=== PATIENT | female | born 1960 ===

== ENCOUNTER 2017-12-31 18:32 | Inpatient (IN) ==
[2017-12-31] MEDS ORDERED: VANCOMYCIN INJ 1,250 MG in SODIUM CHLORIDE 0.9% 250 ML IV STA (19:14)
[2017-12-31] MEDS ORDERED: SODIUM CHLORIDE 0.9% 2,000 ML IV STA (19:14)
[2017-12-31] MEDS ORDERED: CEFEPIME 2,000 MG in SODIUM CHLORIDE 0.9% 100 ML IV STA ×2 (19:15→20:39)
[2017-12-31] MEDS ORDERED: SODIUM CHLORIDE 0.9% 2,400 ML IV ONE (19:49)
[2017-12-31] MEDS ORDERED: SODIUM CHLORIDE 0.9% 100 ML IV ONE (19:56)
[2017-12-31] MEDS ORDERED: CEFEPIME 2,000 MG VIAL ONE (19:56)
[2017-12-31 20:35] LABS: Basophils # 0.1 10*3/uL (0.0-0.2); Basophils % 0.2 % (0.0-0.8); Hematocrit 41.2 VOL% (35.7-47.0); Hemoglobin 13.7 GM/DL (12.0-16.0); Immature Granulocytes % 4.3 %; Immature Granulocytes Absolute 1.51 #; Lymphocytes # 1.4 10*3/uL (1.4-4.0); Lymphocytes % 3.9 % (21.3-54.2); Mean Corpuscular HGB Conc 33.3 GM/DL (32-36); Mean Corpuscular Hemoglobin 30 PG (27-34); Mean Corpuscular Volume 89.8 FL (87-102); Mean Platelet Volume 10.9 FL (9.6-12.0); Monocytes % 5.7 % (1.7-12.7); Neutrophils # 30.5 10*3/uL (1.4-7.4); Neutrophils % 85.9 % (38.7-73.9); Platelet Count 255 T/CUMM (130-400); Red Blood Count 4.59 MC/CUMM (3.8-5.5); Red Cell Distribution Width 13.8 % (9.3-17.3); White Blood Count 35.5 T/CUMM (4-12)
[2017-12-31 20:54] LABS: VBG Base Excess -1.8 MEQ/L (0-4); VBG HCO3 22.9 MEQ/L (24-28); VBG Oxygen Saturation 99.4 %; VBG PCO2 31.4 MMHG (41-51); VBG PH 7.439
[2017-12-31 21:06] LABS: Albumin 2.8 G/DL (3.4-5.0); Bilirubin,Total 0.8 MG/DL (0.2-1.0); Calcium 8.5 MG/DL (8.5-10.1); Osmolality,Calculated 281.7 MOS/KG (273-304); Potassium 3.5 MMOL/L (3.5-5.1); Total Protein 6.2 G/DL (6.4-8.3)
[2017-12-31 22:00] LABS: Sedimentation Rate-Westergren 58 MM/HR (0-30)
[2017-12-31] MEDS ORDERED: ACETAMINOPHEN 325 MG TABLET PO PRN (22:07)
[2017-12-31] MEDS ORDERED: ONDANSETRON 4 MG/2 ML VIAL IV PRN (22:07)
[2017-12-31] MEDS: SODIUM CHLORIDE 0.9% 1,000 ML IV SCH (23:05)
[2017-12-31] MEDS: cefTRIAXone 1,000 MG in SYRINGE 1 EACH IV SCH (23:12)
[2017-12-31 23:15] LABS: Band Neutrophils 3 % (0-10); Lymphocytes 4 % (20-55); Platelet Estimate Normal; Segmented Neutrophils 89 % (50-85); Total Cells Counted 100
[2017-12-31] MEDS: AZITHROMYCIN INJ 500 MG in SODIUM CHLORIDE 0.9% 250 ML IV SCH (23:15)
[2017-12-31] MEDS: ENOXAPARIN 40 MG/0.4 ML SYRINGE SUBCUT SCH (23:18)
[2017-12-31] MEDS: OSELTAMIVIR 75 MG CAPSULE PO SCH (23:19)
[2017-12-31] MEDS: ALBUTEROL 1.25 MG/3 ML NEB RESP TX SCH (23:33)
[2018-01-01 00:16] LABS: Thyroid Stimulating Hormone 0.34 uIU/ml (0.358-3.74)
[2018-01-01 02:20] LABS: Basophils # 0.1 10*3/uL (0.0-0.2); Basophils % 0.2 % (0.0-0.8); Hematocrit 34.9 VOL% (35.7-47.0); Hemoglobin 11.4 GM/DL (12.0-16.0); Immature Granulocytes % 1.6 %; Lymphocytes # 1.8 10*3/uL (1.4-4.0); Lymphocytes % 7.2 % (21.3-54.2); Mean Corpuscular HGB Conc 32.7 GM/DL (32-36); Mean Corpuscular Hemoglobin 30 PG (27-34); Mean Corpuscular Volume 91.1 FL (87-102); Mean Platelet Volume 11.1 FL (9.6-12.0); Monocytes # 1.4 10*3/uL (0.11-0.8); Monocytes % 5.8 % (1.7-12.7); Neutrophils # 21.1 10*3/uL (1.4-7.4); Neutrophils % 85.2 % (38.7-73.9); Platelet Count 206 T/CUMM (130-400); Red Blood Count 3.83 MC/CUMM (3.8-5.5); Red Cell Distribution Width 13.9 % (9.3-17.3); White Blood Count 24.7 T/CUMM (4-12)
[2018-01-01 03:09] LABS: Calcium 7.5 MG/DL (8.5-10.1); Osmolality,Calculated 289.8 MOS/KG (273-304); Potassium 3.5 MMOL/L (3.5-5.1)
[2018-01-01] MEDS: ALBUTEROL 1.25 MG/3 ML NEB RESP TX SCH ×5 (03:37→20:58)
[2018-01-01 03:38] LABS: Band Neutrophils 3 % (0-10); Lymphocytes 4 % (20-55); Segmented Neutrophils 91 % (50-85)
[2018-01-01 03:40] LABS: Platelet Estimate Normal; Total Cells Counted 100
[2018-01-01] MEDS ORDERED: SODIUM CHLORIDE 0.9% 1,000 ML IV ONE (07:12)
[2018-01-01] MEDS: SODIUM CHLORIDE 0.9% 1,000 ML IV SCH ×2 (07:31→10:05)
[2018-01-01] MEDS: PANTOPRAZOLE 40 MG TABLET PO SCH (09:56)
[2018-01-01] MEDS: OSELTAMIVIR 75 MG CAPSULE PO SCH ×2 (09:57→23:21)
[2018-01-01] MEDS: SODIUM CHLOR 0.45% KCL 20 MEQ 20 MEQ/1,000 ML BAG IV SCH ×2 (17:00→23:15)
[2018-01-01] MEDS: ENOXAPARIN 40 MG/0.4 ML SYRINGE SUBCUT SCH (23:14)
[2018-01-01] MEDS: cefTRIAXone 1,000 MG in SYRINGE 1 EACH IV SCH (23:14)
[2018-01-02] MEDS: ALBUTEROL 1.25 MG/3 ML NEB RESP TX SCH ×6 (00:36→20:38)
[2018-01-02] MEDS: AZITHROMYCIN INJ 500 MG in SODIUM CHLORIDE 0.9% 250 ML IV SCH (00:57)
[2018-01-02 06:33] LABS: Basophils % 0.4 % (0.0-0.8); Eosinophils # 0.2 10*3/uL (0.0-0.87); Eosinophils % 1.7 % (0.00-10.9); Hematocrit 34.7 VOL% (35.7-47.0); Hemoglobin 11.6 GM/DL (12.0-16.0); Immature Granulocytes % 1.1 %; Immature Granulocytes Absolute 0.12 #; Lymphocytes # 2.1 10*3/uL (1.4-4.0); Lymphocytes % 19.5 % (21.3-54.2); Mean Corpuscular HGB Conc 33.4 GM/DL (32-36); Mean Corpuscular Hemoglobin 30 PG (27-34); Mean Corpuscular Volume 89.7 FL (87-102); Mean Platelet Volume 11.7 FL (9.6-12.0); Monocytes # 0.7 10*3/uL (0.11-0.8); Monocytes % 6.3 % (1.7-12.7); Neutrophils # 7.7 10*3/uL (1.4-7.4); Platelet Count 225 T/CUMM (130-400); Red Blood Count 3.87 MC/CUMM (3.8-5.5); Red Cell Distribution Width 14.2 % (9.3-17.3); White Blood Count 10.8 T/CUMM (4-12)
[2018-01-02 06:56] LABS: Calcium 8.2 MG/DL (8.5-10.1); Osmolality,Calculated 287.7 MOS/KG (273-304); Potassium 4.2 MMOL/L (3.5-5.1)
[2018-01-02] MEDS: PANTOPRAZOLE 40 MG TABLET PO SCH (08:44)
[2018-01-02] MEDS: OSELTAMIVIR 75 MG CAPSULE PO SCH ×2 (08:45→22:05)
[2018-01-02] MEDS ORDERED: SODIUM CHLORIDE 0.45% 1,000 ML IV SCH (13:00)
[2018-01-02] MEDS: SODIUM CHLOR 0.45% KCL 20 MEQ 20 MEQ/1,000 ML BAG IV SCH (13:05)
[2018-01-02 14:13] LABS: Apearance,Urine CLEAR (Clear); Bacteria,Urine Occasional /HPF (Few); Bilirubin,Urine Negative (Negative); Blood, Urine Negative (Negative); Glucose,Urine (UA) Negative (Negative); Ketones,Urine Negative (Negative); Mucus,Urine Occasional /LPF (Occasional); Nitrite,Urine Negative (Negative); Protein,Urine Negative; RBC,Urine <1 /HPF (0-4); Squamous Epithelial Cell,Urine Occasional /HPF (0-10); Urine Color Colorless (Yellow); Urine Specific Gravity 1.004 (1.001-1.035); Urine Urobilinogen < 2.0 EU/DL (0.2-1.0); WBC,Urine <1 /HPF (0-6)
[2018-01-02] MEDS: cefTRIAXone 1,000 MG in SYRINGE 1 EACH IV SCH (21:59)
[2018-01-02] MEDS: ENOXAPARIN 40 MG/0.4 ML SYRINGE SUBCUT SCH (21:59)
[2018-01-03] MEDS: AZITHROMYCIN INJ 500 MG in SODIUM CHLORIDE 0.9% 250 ML IV SCH (01:21)
[2018-01-03] MEDS: ALBUTEROL 1.25 MG/3 ML NEB RESP TX SCH ×4 (03:16→11:01)
[2018-01-03 06:45] LABS: Basophils # 0.1 10*3/uL (0.0-0.2); Basophils % 0.7 % (0.0-0.8); Eosinophils # 0.2 10*3/uL (0.0-0.87); Eosinophils % 3.1 % (0.00-10.9); Hematocrit 35.5 VOL% (35.7-47.0); Hemoglobin 11.8 GM/DL (12.0-16.0); Immature Granulocytes % 0.3 %; Immature Granulocytes Absolute 0.02 #; Lymphocytes # 1.6 10*3/uL (1.4-4.0); Mean Corpuscular HGB Conc 33.2 GM/DL (32-36); Mean Corpuscular Hemoglobin 30 PG (27-34); Monocytes # 0.5 10*3/uL (0.11-0.8); Neutrophils # 4.3 10*3/uL (1.4-7.4); Neutrophils % 63.9 % (38.7-73.9); Platelet Count 276 T/CUMM (130-400); Red Blood Count 3.99 MC/CUMM (3.8-5.5); Red Cell Distribution Width 13.6 % (9.3-17.3); White Blood Count 6.8 T/CUMM (4-12)
[2018-01-03 07:12] LABS: Calcium 8.5 MG/DL (8.5-10.1); Osmolality,Calculated 291.4 MOS/KG (273-304); Potassium 3.9 MMOL/L (3.5-5.1)
[2018-01-03] MEDS: OSELTAMIVIR 75 MG CAPSULE PO SCH (08:10)
[2018-01-03] MEDS: PANTOPRAZOLE 40 MG TABLET PO SCH (08:10)
[2018-01-03 10:57] VITALS: BP 127/69
== END 2018-01-03 13:25 | disposition home or self-care (01) | DRG 871 ==
LOC: EDBD → EDUNIT# → N.ED 18:32 → N.EDINP 19:29 → SUATTDRO 19:29 → N.CC 20:50 → N.5E 01-01 18:13
PROVIDERS: ADMIT Hospitalist; ATTEND Internal Medicine